=== PATIENT | female | born 1980 | race American Indian/Alaskan Native ===

== ENCOUNTER 2017-09-11 08:54 | Day surgery (SDC) | payer OTHER ==
--- NOTE | 2017-09-10 16:39 | Short Stay Summary ---
Short Stay Documentation Date of service: 09/11/17 Narrative H&P: 37y/o with worsening pelvic pain. Sonogram demonstrated a right hemorrhagic cyst measuring 5.8cm and a left cyst 2.5cm. She also reports worsening dyspareunia. Patient has been reassessed/reevaluated/re-examined. H&P has been reviewed. No interval changes. - History Principal diagnosis: Pelvic pain and ovarian cysts Past Medical History: hypertension Past Surgical History: Social history: single - Allergies and Medications Current Medications: Allergies No Known Allergies Allergy (Unverified 09/09/17 12:14) Home Medications Medication Instructions Recorded Confirmed Last Taken Type Lisinopril [Zestril TAB] 30 mg PO QDAY 09/09/17 09/09/17 Unknown History - Physical exam General appearance: no acute distress Integumentary: no rash HEENT: Atraumatic Lungs: Clear to auscultation Breasts: deferred Heart: Regular rate Gastrointestinal: normal Female Genitourinary: deferred Rectal Exam: deferred - Brief post op/procedure progress note Date of procedure: 09/11/17 Pre-op diagnosis: pelvic mass; pelvic pain Post-op diagnosis: same Procedure: Laparoscopy Lysis of adhesions Bilateral ovarian cystectomies Anesthesia: GETA Surgeon: NHAN GARZA Estimated blood loss: minimal Pathology: list (ovarian cyst wall) Specimen disposition: to lab Condition: stable - Hospital course Hospital course: This was admitted the day of surgery and underwent a laparoscopy and bilateral ovarian cystectomies with findings of a right endometrioma. Please see operative note for details of surgery. A postoperative course was uneventful. - Disposition Condition at discharge: Good Disposition: [id number] TO HOME OR SELFCARE Short Stay Discharge Plan Activity: other (pelvic rest for 1 week) Diet: regular Additional Instructions: Scheduled follow-up with Dr. Macias in 2-4 weeks Prescriptions: Ibuprofen [Motrin] 800 mg PO Q8HR PRN #60 tablet PRN Reason: Pain oxyCODONE /ACETAMINOPHEN [Percocet 5/325] 1 tab PO Q6HR PRN #30 tablet PRN Reason: Pain
[2017-09-11] MEDS ORDERED: TORADOL IV PRN (10:16)
--- NOTE | 2017-09-11 10:17 | Anesthesia Consultation ---
Anesthesia Consult and Med Hx Date of service: 09/11/17 - Airway Anesthetic Teeth Evaluation: Good ROM Head & Neck: Adequate Mental/Hyoid Distance: Adequate Mallampati Class: Class I Intubation Access Assessment: Good - Pulmonary Exam CTA: Yes - Cardiac Exam Cardiac Exam: RRR - Pre-Operative Health Status ASA Pre-Surgery Classification: ASA2 Proposed Anesthetic Plan: General - Cardiovascular System Hx Hypertension: Yes - Central Nervous System Hx Psychiatric Problems: No - Hematic Hx Sickle Cell Disease: Yes (Trait only) - Other Systems Hx Alcohol Use: Yes (occas) Hx Cancer: No
--- NOTE | 2017-09-11 10:17 | Anesthesia Day of Surgery ---
Anesthesia Day of Surgery - Day of Surgery Patient Examined: Yes Patient H&P Reviewed: Yes Patient is NPO: Yes
[2017-09-11] MEDS ORDERED: LACTATED RINGERS 1,000 ML IV SCH (11:00)
[2017-09-11] MEDS ORDERED: VERSED IV NR (11:00)
[2017-09-11] MEDS ORDERED: DIPRIVAN 10 MG/ML IV ONE (12:06)
[2017-09-11] MEDS ORDERED: ZEMURON IV ONE (12:07)
[2017-09-11] MEDS ORDERED: DILAUDID ONE (12:07)
[2017-09-11] MEDS ORDERED: XYLOCAINE MPF 2% ONE (12:08)
[2017-09-11] MEDS ORDERED: TORADOL ONE (12:49)
[2017-09-11] MEDS ORDERED: ZOFRAN ONE (12:49)
[2017-09-11] MEDS ORDERED: LACTATED RINGERS 1,000 ML ONE (12:59)
[2017-09-11] MEDS ORDERED: NEOSTIGMINE ONE (13:24)
[2017-09-11] MEDS ORDERED: ROBINUL ONE ×2 (13:24→13:28)
[2017-09-11] MEDS ORDERED: MARCAINE 0.5% 0 ML INFILTRATI ONE (13:34)
[2017-09-11] MEDS ORDERED: MARCAINE 0.25% INFILTRATI ONE ×2 (13:35→13:49)
--- NOTE | 2017-09-11 13:45 | Operative Report ---
Operative Report Operative Report: Date of surgery: 09/11/2017 Preoperative diagnosis: Adnexal mass; chronic pelvic pain Postoperative diagnosis: Same as above Procedure: Laparoscopy; lysis of adhesions; bilateral ovarian cystectomies Surgeon: Paula Macias M.D. Anesthesia: General endotracheal anesthesia Estimated blood loss: Minimal Findings: And a large right adnexal mass with findings of an endometrioma. There was also evidence of a left ovarian cyst. The omental and bowel were densely adherent to the anterior abdominal wall. The posterior cul-de-sac was obliterated with adhesions secondary to the endometriosis. The left adnexa was densely adherent to the left pelvic sidewall. Pathology: Ovarian cyst wall Indication: 37-year-old with a history of an adnexal mass on ultrasound and chronic pelvic pain. The patient elected to undergo surgical management of her symptoms. Procedure: The patient was taken to the operating room and given general endotracheal anesthesia without complication. The patient is prepped and draped in a normal sterile fashion. A bivalve speculum was placed in the patient's vagina and a single-tooth tenaculum was placed on the anterior lip of the cervix .A uterine acorn manipulato rwas placed, and the bivalve speculum was then removed. Attention was then turned to the patient's abdomen where a 5 mm infraumbilical skin incision was then made. A Veress needle was placed and peritoneal entry was verified water-filled syringe. Insufflation of the peritoneal cavity was performed with CO2 gas. A 5 mm trocar was placed and the laparoscope was then inserted. The patient was then placed in Trendelenburg. A 5 mm suprapubic skin incision was then made. Under direct visualization a 5 mm trocar was then placed. General survey of the patient's abdomen revealed extensive omental and bowel adhesions to the anterior abdominal wall. There was a large right adnexal mass consistent with endometrioma. There was an incidental cystotomy of the adnexal mass with findings of an endometrioma. The left adnexa had findings of an ovarian cyst and was densely adherent to the left pelvic sidewall. The pole posterior cul-de -sac had extensive adhesions which subsequently obliterated the posterior cul-de -sac. The uterus was adherent anteriorly. A 10 mm left lateral trocar was placed under direct visualization. The right endometrioma was evacuated and irrigated. The cyst was excised with the monopolar scissors. The tissue was removed through the 10 mm trocar. Attention was then turned to the left adnexa which had evidence of an ovarian cyst. The ovarian cyst was excised with the monopolar scissors as well. Lysis of adhesions were performed in the posterior cul-de-sac. The left ovarian cyst was removed through the 10 mm trocar. Copious irrigation of the pelvis was performed. The pelvis demonstrated multiple pelvic adhesions. The pneumoperitoneum was then released. The 10 mm fascial incision was closed with the Clinton Velazquez device. The fascia was closed with 0 Vicryl. The 5 mm suprapubic trocar was then removed. The laparoscope and 5 mm trocar was then removed. The skin incisions were then closed with 4-0 Monocryl. The incisions were injected with quarter percent Marcaine. Dressings were applied to the incision. The vaginal instruments were then removed atraumatically. Then successfully extubated and taken to the recovery room. All sponge laps and needle counts were correct 2.
[2017-09-11] MEDS ORDERED: NACL 0.9% IR ONE (13:49)
[2017-09-11] MEDS: DILAUDID IV PRN ×2 (14:20→14:34)
--- NOTE | 2017-09-11 14:41 | Post Anesthesia Evaluation ---
- Post Anesthesia Evaluation Patient Participated: Yes Airway Patent: Yes Stable Respiratory Function: Yes Nausea/Vomiting: No Temp > 96.8F: Yes Pain Manageable: Yes Adequeate Hydration: Yes Anesthesia Complications: No
[2017-09-11 15:59] VITALS: BP 115/64
== END 2017-09-11 15:45 | disposition home or self-care (01) ==
LOC: OR 08:54
PROVIDERS: ATTEND Obstetrics & Gynecology
DX: N83.12 Corpus luteum cyst of left ovary (principal); K66.0 Peritoneal adhesions (postprocedural) (postinfection); N85.8 Other specified noninflammatory disorders of uterus; D57.3 Sickle-cell trait; I10 Essential (primary) hypertension; Z98.890 Other specified postprocedural states
CPT/HCPCS: 58662; 81025; 88305; J1170; J1885; J2250; J2405; J2704; J2710; J7120

== ENCOUNTER 2017-09-17 07:22 | Emergency (ER) | payer OTHER ==
[2017-09-17] MEDS ORDERED: MOTRIN PO ONE (09:26)
--- NOTE | 2017-09-17 09:29 | Emergency Department Report ---
HPI - General Chief Complaint: Extremity Injury, Lower Time Seen by Provider: 09/17/17 09:04 - HPI HPI: 37-year-old -[place] female comes in complaining of bilateral foot pain that is sharp in nature and constant. She says standing on both feet make the pain worse but makes it better his elevation of feet. She also complains of left leg pain. Patient reports that the pain in the left leg is sharp at her both rest and worse with movement and walking. She says that the pain is constant denies any swelling to the leg. She is status post ovarian cyst removal on 09/11/2017. She denies any shortness of breath no chest pain no fever no chills no nausea no vomiting. She reports that she is taking her Percocet and ibuprofen with last dose at 8 PM last night. She reports that the pain medication is not helping with her pain. She reports she has a past medical history of hypertension she is on nifedipine 30 mg daily. ED Past Medical Hx - Past Medical History Hx Hypertension: Yes Hx Sickle Cell Disease: Yes (Trait only) - Surgical History Additional Surgical History: - Social History Smoking Status: Never Smoker Substance Use Type: None - Medications Home Medications: Home Medications Medication Instructions Recorded Confirmed Last Taken Type Lisinopril [Zestril TAB] 30 mg PO QDAY 09/09/17 09/11/17 09/11/17 06:00 History Ibuprofen [Motrin] 800 mg PO Q8HR PRN #60 tablet 09/11/17 Unknown Rx oxyCODONE /ACETAMINOPHEN [Percocet 1 tab PO Q6HR PRN #30 tablet 09/11/17 Unknown Rx 5/325] Aspirin EC [Aspirin Enteric Coated 81 mg PO QDAY #45 tablet. 09/17/17 Unknown Rx TAB] ED Review of Systems ROS: Stated complaint: LEG AND SIDE PAIN Other details as noted in HPI Constitutional: denies: chills, fever Eyes: denies: eye pain, eye discharge, vision change ENT: denies: ear pain, throat pain Respiratory: denies: cough, shortness of breath, wheezing Cardiovascular: denies: chest pain, palpitations Endocrine: no symptoms reported Gastrointestinal: denies: abdominal pain, nausea, diarrhea Genitourinary: denies: urgency, dysuria, discharge Musculoskeletal: arthralgia, myalgia Skin: denies: rash, lesions Neurological: denies: headache, weakness, paresthesias Psychiatric: denies: anxiety, depression Hematological/Lymphatic: denies: easy bleeding, easy bruising Physical Exam - Physical Exam Vital Signs: Vital Signs 09/17/17 07:24 Temperature 98 F Pulse Rate 96 H Respiratory 16 Rate Blood Pressure 143/107 O2 Sat by Pulse 99 Oximetry Physical Exam: GENERAL: Alert and oriented x3, no apparent distress, Normal Gait, atraumatic. HEAD: Head is normocephalic and a-traumatic. EYES: Extra ocular muscles are intact. Pupils are equal, round, and reactive to light and accommodation. EARS: symetrical, atraumatic, non tender, NOSE: Nose symetrical, Nontender,Nares appeared normal. MOUTH:Mouth is well hydrated and without lesions. Uvula midline, Tongue not elevated. Mucous membranes are moist. NECK: Supple. Non edematous, No carotid bruits. No lymphadenopathy or thyromegaly. LUNGS: Symetrical with respiration, No wheezing, no rales or crackles, CTAB. HEART: S1, S2 present, regular rate and rhythm without murmur, no rubs, no gallops. ABDOMEN: No organomegaly was noted,Positive bowel sounds, soft, and non- distended. . Nontender to palpation on all Quadrants, NO CVA tenderness. Multiple healing scars to the left lower pelvic and to the line. No drainage noted no redness no swelling. No keloid. EXTREMITIES/MUSCULOSKELETAL: No cyanosis, clubbing, rash, lesions or edema. Full ROM bilaterally. UE/LE Pulses 2+ bilaterally. LE and UE 5+ strength bilaterally, tenderness to the left leg behind the knee and left thigh. Negative Homans sign. NEUROLOGIC: No focal Deficit, Cranial nerves II through XII are grossly intact. No loss of sensation, No facial droop, Negative rhomberg. PSYCHIATRIC: Mood is congruent with affect, denies suicidal or homicidal ideations. SKIN: Warm and dry, No lesions, No ulceration or induration present ED Course Vital Signs 09/17/17 07:24 Temperature 98 F Pulse Rate 96 H Respiratory 16 Rate Blood Pressure 143/107 O2 Sat by Pulse 99 Oximetry ED Medical Decision Making - Lab Data Result diagrams: 09/17/17 09:33 09/17/17 09:37 - Medical Decision Making Patient's been evaluated by this provider fast track. I have ordered CBC CMP urinalysis and a d-dimer. I've ordered a left lower extremity Dopplers this patient is status post surgery with unilateral leg pain. Ordered ibuprofen 800 mg for pain management. Patient did drive herself to the emergency room. D-dimer was elevated but patient is status post surgery as well as negative Doppler. Discussed the patient she needs to hydrate take her ibuprofen and a baby aspirin. And follow-up with her surgeon. Patient verbalized understanding Critical care attestation.: If time is entered above; I have spent that time in minutes in the direct care of this critically ill patient, excluding procedure time. ED Disposition Clinical Impression: Left leg pain, Bilateral foot pain Disposition: - TO HOME OR SELFCARE Is pt being admited?: No Does the pt Need Aspirin: No Condition: Stable Additional Instructions: Please take aspirin as prescribed. Please be sure to drink at least 8 cups of water a day as well as getting up every 2 hours to walk. Take pain medication as prescribed by your surgeon. Contact her surgeon to follow up for further evaluation. Prescriptions: Aspirin EC [Aspirin Enteric Coated TAB] 81 mg PO QDAY #45 tablet. Referrals: THI MINA MD [Primary Care Provider] - 3-5 Days Forms: Work/School Release Form(ED)
[2017-09-17 09:43] LABS: Basophils # (Auto) 0.1 K/mm3 (0.0-0.1); Basophils % (Auto) 1.4 % (0.0-1.8); Eosinophils # (Auto) 0.1 K/mm3 (0.0-0.4); Eosinophils % (Auto) 1.8 % (0.0-4.3); Hemoglobin 12.5 gm/dl (10.1-14.3); Lymphocytes % (Auto) 25.6 % (13.4-35.0); Mean Corpuscular HGB Conc 33 % (30-34); Mean Corpuscular Hemoglobin 28 pg (28-32); Mean Corpuscular Volume 86 fl (79-97); Monocytes # (Auto) 0.3 K/mm3 (0.0-0.8); Monocytes % (Auto) 7.9 % (0.0-7.3); Platelet Count 348 K/mm3 (140-440); Red Cell Distribution Width 14.1 % (13.2-15.2)
[2017-09-17 09:58] LABS: Alanine Aminotransferase 15 units/L (7-56); Albumin 3.9 g/dL (3.9-5); BUN/Creatinine Ratio 26; Blood Urea Nitrogen 13 mg/dL (7-17); Calcium 8.5 mg/dL (8.4-10.2); Hemolysis Index 44
[2017-09-17 10:31] LABS: Bilirubin,Urine NEG (Negative); Blood,Urine MOD (Negative); Color,Urine Yellow (Yellow); Mucus,Urine 2+ /HPF; Protein,Urine <15 mg/dL mg/dL (Negative); Urobilinogen,Urine < 2.0 mg/dL (<2.0)
[2017-09-17 10:51] VITALS: BP 110/83
== END 2017-09-17 10:51 | disposition home or self-care (01) ==
LOC: ED 07:22
DX: M79.605 Pain in left leg (principal); M79.671 Pain in right foot; M79.672 Pain in left foot; I10 Essential (primary) hypertension
CPT/HCPCS: 36415; 80053; 81001; 85025; 85379; 99283